=== PATIENT | female | born 1990 | race Caucasian/White ===

== ENCOUNTER → 2017-10-15 13:40 | Outpatient (CLI) | payer OTHER ==
[2017-10-17 22:06] LABS: EBV - EARLY ANTIGEN AB IGG <9.0 U/mL (0.0-8.9); EBV - NUCLEAR ANTIGEN AB IGG <18.0 U/mL (0.0-17.9); EBV VIRAL CAPSID AB IGG <18.0 U/mL (0.0-17.9); EBV VIRAL CAPSID AB IGM <36.0 U/mL (0.0-35.9)
[2017-10-18 20:08] LABS: RMSF IGM 0.21 index (0.00-0.89)
== END | disposition home or self-care (01) ==
LOC: D.LABREF 13:40
PROVIDERS: Student in an Organized Health Care Education/Training Program
DX: R53.83 Other fatigue (principal)